=== PATIENT | female | born 2000 | race Caucasian/White ===

== ENCOUNTER 2020-03-17 11:03 | Emergency (ER) | payer BC ==
[~2020-03-17] VITALS: Ht 177.8 cm; Wt 75.7 kg
[2020-03-17 11:05] VITALS: BP 130/78
[2020-03-17] MEDS ORDERED: AMOX1TAB61 PO (11:22)
--- NOTE | 2020-03-17 11:22 | PHYS DOC ---
Past History Past Medical History: No Pertinent History Past Surgical History: Tonsillectomy Smoking: Non-smoker Alcohol Use: Occasionally Drug Use: None General Adult EDM: Chief Complaint: HEADACHE HPI: HPI: Patient is a 20-year-old female who presented to ER today for evaluation of headache and facial pain for about 2 weeks. Patient denies any fever, no cough, no chest pain, no abdominal pain, no sore throat. Patient denies any injury to her head. Patient denies any neck pain or neck stiffness. Review of Systems: Review of Systems: Constitutional: Denies fever or chills Eyes: Denies change in visual acuity HENT: Denies nasal congestion or sore throat Respiratory: Denies cough or shortness of breath Cardiovascular: Denies chest pain or edema GI: Denies abdominal pain, nausea, vomiting, bloody stools or diarrhea : Denies dysuria Musculoskeletal: Denies back pain or joint pain Integument: Denies rash Neurologic: Positive for headache, no focal weakness or sensory changes Endocrine: Denies polyuria or polydipsia Lymphatic: Denies swollen glands Psychiatric: Denies depression or anxiety Heart Score: Risk Factors: Risk Factors: DM, Current or recent (<one month) smoker, HTN, HLP, family history of CAD, obesity. Risk Scores: Score 0 - 3: 2.5% MACE over next 6 weeks - Discharge Home Score 4 - 6: 20.3% MACE over next 6 weeks - Admit for Clinical Observation Score 7 - 10: 72.7% MACE over next 6 weeks - Early Invasive Strategies Allergies: Allergies: Allergies Coded Allergies Type Severity Reaction Last Updated Verified No Known Drug Allergies 03/26/14 No Physical Exam: PE: Constitutional: Well developed, well nourished, no acute distress, non-toxic appearance. [] HENT: Normocephalic, atraumatic, bilateral external ears normal, oropharynx moist, no oral exudates, nose normal. [] Bilateral maxillary sinuses tender to palpation Eyes: PERRLA, EOMI, conjunctiva normal, no discharge. [] Neck: Normal range of motion, no tenderness, supple, no stridor. [] Cardiovascular:Heart rate regular rhythm, no murmur [] Lungs & Thorax: Bilateral breath sounds clear to auscultation [] Abdomen: Bowel sounds normal, soft, no tenderness, no masses, no pulsatile masses. [] Skin: Warm, dry, no erythema, no rash. [] Back: No tenderness, no CVA tenderness. [] Extremities: No tenderness, no cyanosis, no clubbing, ROM intact, no edema. [] Neurologic: Alert and oriented X 3, normal motor function, normal sensory function, no focal deficits noted. [] Psychologic: Affect normal, judgement normal, mood normal. [] Current Patient Data: Vital Signs: Vital Signs Date Time Temp Pulse Resp B/P (MAP) Pulse Ox O2 Delivery O2 Flow Rate FiO2 03/17/20 11:05 98.2 79 16 130/78 (95) 99 Room Air EKG: EKG: [] Radiology/Procedures: Radiology/Procedures: [] Course & Med Decision Making: Course & Med Decision Making Pertinent Labs and Imaging studies reviewed. (See chart for details) [] Dragon Disclaimer: Dragon Disclaimer: This electronic medical record was generated, in whole or in part, using a voice recognition dictation system. Departure Departure: Impression: Primary Impression: Sinusitis Disposition: 01 HOME, SELF-CARE Condition: STABLE Referrals: EMELY AYON MD (PCP) FOLLOW UP WITH YOUR DOCTOR NEXT WEEK Patient Instructions: Sinusitis Scripts Amoxicillin/Potassium Clav (AUGMENTIN 875-125 TABLET) 1 Each Tablet 1 TAB PO BID for SINUSITIS for 10 Days, #20 TAB 0 Refills Prov: ADNY ROMAN DO 03/17/20 DANY ROMAN DO Mar 17, 2020 11:22
== END 2020-03-17 11:23 | disposition home or self-care (01) ==
LOC: ER 11:03
DX: J32.9 Chronic sinusitis, unspecified (principal)
CPT/HCPCS: 99283

== ENCOUNTER 2021-04-09 08:29 | Emergency (ER) | payer BC ==
[~2021-04-09] VITALS: Ht 162.6 cm; Wt 70.3 kg
[~2021-04-09 08:29] MED LIST: AMOX1TAB61 PO
[2021-04-09 08:32] VITALS: BP 132/93
--- NOTE | 2021-04-09 09:10 | RAD ---
EXAMINATION: Chest radiograph. VIEWS: 2 views COMPARISON: None INDICATION: Cough FINDINGS: Normal cardiomediastinal silhouette. No focal consolidation. No pleural effusion or pneumothorax. No acute osseous process. IMPRESSION: No acute cardiopulmonary process. Electronically signed by: Kriss Muse MD (04/09/2021 9:07 AM) [id number]
--- NOTE | 2021-04-09 10:12 | PHYS DOC ---
Past History Past Medical History: No Pertinent History Past Surgical History: Tonsillectomy Smoking: Non-smoker Alcohol Use: None Drug Use: None General Adult EDM: Chief Complaint: SORE THROAT HPI: HPI: Patient is a 21-year-old female who presented to ER due to nasal congestion sore throat, body ache, cough for the last 3 days. Patient went to the [facility] yesterday, had Covid test and came back negative. Patient continued to have sore throat and cough so she came in here for evaluation. Patient denies any abdominal pain, no nausea vomiting, no diarrhea. Review of Systems: Review of Systems: Constitutional: Denies fever or chills Eyes: Denies change in visual acuity HENT: Positive for nasal congestion and sore throat Respiratory: Positive for cough, no shortness of breath Cardiovascular: Denies chest pain or edema GI: Denies abdominal pain, nausea, vomiting, bloody stools or diarrhea : Denies dysuria Musculoskeletal: Denies back pain or joint pain Integument: Denies rash Neurologic: Denies headache, focal weakness or sensory changes Endocrine: Denies polyuria or polydipsia Lymphatic: Denies swollen glands Psychiatric: Denies depression or anxiety Allergies: Allergies: Allergies Coded Allergies Type Severity Reaction Last Updated Verified No Known Drug Allergies 04/09/21 No Physical Exam: PE: Constitutional: Well developed, well nourished, no acute distress, non-toxic appearance. [] HENT: Normocephalic, atraumatic, bilateral external ears normal, oropharynx mois t and mild erythema, no oral exudates, nose with clear drainage. Eyes: PERRLA, EOMI, conjunctiva normal, no discharge. [] Neck: Normal range of motion, no tenderness, supple, no stridor. [] Cardiovascular:Heart rate regular rhythm, no murmur [] Lungs & Thorax: Bilateral breath sounds clear to auscultation [] Abdomen: Bowel sounds normal, soft, no tenderness, no masses, no pulsatile masses. [] Skin: Warm, dry, no erythema, no rash. [] Back: No tenderness, no CVA tenderness. [] Extremities: No tenderness, no cyanosis, no clubbing, ROM intact, no edema. [] Neurologic: Alert and oriented X 3, normal motor function, normal sensory function, no focal deficits noted. [] Psychologic: Affect normal, judgement normal, mood normal. [] Current Patient Data: Labs: Laboratory Tests Test 04/09/21 08:40 Group A Streptococcus Rapid Negative (NEGATIVE) Vital Signs: Vital Signs Date Time Temp Pulse Resp B/P (MAP) Pulse Ox O2 Delivery O2 Flow Rate FiO2 04/09/21 08:32 98.2 86 16 132/93 (106) 99 Room Air EKG: EKG: [] Radiology/Procedures: Radiology/Procedures: [][place] [address] IMAGING REPORT Signed PATIENT: JAYLON QUINN ACCOUNT: [id number] : 2000 LOCATION: ER AGE: 21 SEX: F EXAM STATUS: REG ER ORD. PHYSICIAN: DANY ROMAN DO REASON: COUGH, CONGESTION, SOA FOR 3 DAYS PROCEDURE: CHEST PA & LATERAL EXAMINATION: Chest radiograph. VIEWS: 2 views COMPARISON: None INDICATION: Cough FINDINGS: Normal cardiomediastinal silhouette. No focal consolidation. No pleural effusion or pneumothorax. No acute osseous process. IMPRESSION: No acute cardiopulmonary process. Electronically signed by: Lynne Muse MD (04/09/2021 9:07 AM) [id number] DICTATED AND SIGNED BY: LYNNE MUSE MD DATE: 04/09/21905 CC: EMELY AYON MD; DANY ROMAN DO ~MTH0 0 Heart Score: C/O Chest Pain: N/A Risk Factors: Risk Factors: DM, Current or recent (<one month) smoker, HTN, HLP, family history of CAD, obesity. Risk Scores: Score 0 - 3: 2.5% MACE over next 6 weeks - Discharge Home Score 4 - 6: 20.3% MACE over next 6 weeks - Admit for Clinical Observation Score 7 - 10: 72.7% MACE over next 6 weeks - Early Invasive Strategies Course & Med Decision Making: Course & Med Decision Making Pertinent Labs and Imaging studies reviewed. (See chart for details) [] Dragon Disclaimer: Dragon Disclaimer: This electronic medical record was generated, in whole or in part, using a voice recognition dictation system. Departure Departure: Impression: Primary Impression: Upper respiratory infection Disposition: HOME / SELF CARE / HOMELESS Condition: STABLE Referrals: EMELY AYON MD (PCP) Follow up with your doctor as needed this week Patient Instructions: Upper Respiratory Infection, Adult Additional Instructions: Thank you for visiting our Emergency Department. We appreciate you trusting us with your care. If any additional problems come up don't hesitate to return to visit us. Please follow up with your primary care provider so they can plan additional care if needed and know about the problem that you had. If symptoms worsen come back to the Emergency Department. Any concerning symptoms that start such as chest pain, shortness of air, weakness or numbness on one side of the body, running high fevers or any other concerning symptoms return to the ER. DANY ROMAN DO April 09, 2021 10:12
== END 2021-04-09 10:36 | disposition home or self-care (01) ==
LOC: ER 08:29
DX: J06.9 Acute upper respiratory infection, unspecified (principal)
CPT/HCPCS: 71046; 87070; 87880; 99284

== ENCOUNTER 2021-12-17 09:13 | Emergency (ER) | payer BC ==
[~2021-12-17] VITALS: Ht 162.6 cm; Wt 64.1 kg
[2021-12-17] MEDS ORDERED: ONDANSETRON ODT 4 MG TAB.RAPDIS PO ONE (10:45)
--- NOTE | 2021-12-17 10:56 | PHYS DOC ---
Past History Past Medical History: No Pertinent History (ELIEZER MARTÍNEZ) Past Surgical History: Tonsillectomy (ELIEZER MARTÍNEZ) Smoking: Non-smoker, Second-hand Alcohol Use: None Drug Use: None (ELIEZER MARTÍNEZ) General Adult EDM: Chief Complaint: COUGH HPI: HPI: Patient is a 21 year old female who presents with 7-day history of congestion, cough, shortness of breath, fatigue and nausea. Patient reports her boyfriend at home tested COVID positive. When she tested before her symptoms began, she states that her test was negative. Patient denies fever, body aches, vomiting, diarrhea. She was not vaccinated against COVID-19 and has not received a flu shot this season (ELIEZER MARTÍNEZ) Review of Systems: Review of Systems: Constitutional: See HPI Eyes: Denies change in visual acuity, visual field deficits or discharge HENT: See HPI Respiratory: Denies cough or shortness of breath Cardiovascular: Denies chest pain, palpitations or edema GI: See HPI : Denies dysuria or hematuria Musculoskeletal: Denies back pain or joint pain Integument: Denies rash or other skin lesion Neurologic: Denies headache, focal weakness or sensory changes (ELIEZER MARTÍNEZ) Current Medications: Current Meds: Current Medications Medications (Trade) Dose Ordered Sig/Abdoul Start Time Stop Time Status Last Admin Dose Admin Ondansetron HCl (Zofran Odt) 4 mg 1X ONCE 12/17/21 10:45 12/17/21 10:47 DC 12/17/21 10:50 4 MG (ELIEZER MARTÍNEZ) Allergies: Allergies: Allergies Coded Allergies Type Severity Reaction Last Updated Verified No Known Drug Allergies 04/09/21 No (ELIEZER MARTÍNEZ) Physical Exam: PE: Constitutional: Well developed, well nourished, no acute distress, non-toxic appearance. HENT: Normocephalic, atraumatic, bilateral external ears normal, oropharynx moist, no oral exudates, nose normal. Eyes: EOMI, conjunctiva normal, no discharge. Neck: Normal range of motion, no stridor. Cardiovascular: Heart rate regular rhythm, no murmur. Lungs & Thorax: Bilateral breath sounds mild expiratory wheezing. Skin: Warm, dry, no erythema, no rash. Extremities: No tenderness, no cyanosis, no clubbing, ROM intact, no edema. Neurologic: Alert and oriented x4, steady and symmetrical gait, no focal deficits noted. (ELIEZER MARTÍNEZ) Current Patient Data: Labs: Laboratory Tests Test 12/17/21 10:32 Influenza Type A (Rapid) Negative (NEGATIVE) Influenza Type B (Rapid) Negative (NEGATIVE) Vital Signs: Vital Signs Date Time Temp Pulse Resp B/P (MAP) Pulse Ox O2 Delivery O2 Flow Rate FiO2 12/17/21 09:50 98.1 83 20 127/65 (85) 100 Room Air (ELIEZER MARTÍNEZ) Heart Score: C/O Chest Pain: No (ELIEZER MARTÍNEZ) Course & Med Decision Making: Course & Med Decision Making Pertinent Labs and Imaging studies reviewed. (See chart for details) Patient is an otherwise healthy 21-year-old female who presents with multiple symptoms concerning for viral syndrome, COVID-19 cannot be ruled out. With patient having resided with someone who tested COVID positive and now having symptoms, she has clinical diagnosis of COVID-19. Flu swab will be obtained as well. Patient treated with Zofran for nausea. Patient was given return precautions, isolation instruction, a note for work. All of her questions were answered. She understands and is agreeable to discharge plan. (ELIEZER MARTÍNEZ) Course & Med Decision Making I was the Attending physician on the above date of service of this patient. This patient was evaluated, examined, treated, and dispositioned from the emergency department by the mid-level practitioner. Although I was working at the time , no assistance was requested. Electronically signed, Wanda Pérez DO (WANDA PÉREZ DO) Hector Disclaimer: Hector Disclaimer: This electronic medical record was generated, in whole or in part, using a voice recognition dictation system. (ELIEZER MARTÍNEZ) Departure Departure: Impression: Primary Impression: COVID-19 determined by clinical diagnostic criteria Disposition: HOME / SELF CARE / HOMELESS Condition: STABLE Referrals: EMELY AYON MD (PCP) Patient Instructions: Viral Syndrome Additional Instructions: Follow the following supportive treatment measures: - Cool mist humidifier with plain water at bedside while you sleep - Mucinex (guaifenesin) per box instructions - Tessalon perles (benzonatate) for cough, especially at night before bed - Zofran (ondansetron) for nausea/vomiting - Alternate ibuprofen and acetaminophen every four hours for body aches/fever/headache Your isolation period will end on 12/21/21. Beginning 12/22/21, you may return to work. You have been tested for or diagnosed with COVID-19 infection. It is an infection caused by a new type of coronavirus. COVID-19 will cause cold-like or mild flu symptoms in most. It can cause more severe symptoms like problems breathing in some. There is no treatment for COVID-19. The body will clear the infection over time. Self-care will help to ease discomfort. Steps to Take: - Rest as needed. - Choose healthy foods including fruits and vegetables. Drink water throughout the day. - Get plenty of sleep each night. - If you smoke, try to quit. It may ease breathing. - Avoid alcohol. - Keep Others Healthy - The virus can spread to others. Droplets are released every time you sneeze or cough. The droplets can get into the mouth, nose, or eyes of people near you and lead to infection. To lower the chances of spreading COVID-19 to others: Stay at home until your doctor has said it is safe to leave. If you tested positive this will mean staying isolated until both of the following are true: - At least 10 days have passed since the start of illness. - You are free of fever for at least 72 hours without the use of medicine. During this time: - Avoid public areas, events, or transportation. Do not return to work or school until your doctor has said it is safe to do so. - Call ahead if you need to go to a medical center. Let them know you may have COVID-19. It will help them guide you where to go. They may also ask you to wear a facemask when you come to the office. - If you call for emergency medical services, let them know you may have COVID- 19. While at home: - Try to avoid close contact with others. Stay about 6 feet away. - If possible, spend most of your time in a separate room from others. - Use a face mask if you will be in close contact with others such as sharing a room or vehicle. - Have someone wipe down common surfaces in the home. Use household transmission supervisor every day on areas like doorknobs, counters, or sinks. - Cough or sneeze into a tissue. Throw the tissue away right after use. If a tissue is not available, cough or sneeze into your elbow. - Wash your hands often. Wash them after sneezing or coughing. Use soap and water and wash or at least 20 seconds. Alcohol based hand cell cleaner can be used if soap and water is not available. - Do not prepare food for others. Avoid sharing personal items like forks, spoons, or toothbrushes. - Avoid close contact with pets while you are sick. There is no evidence of the virus passing to pets. This is a safety step until more is known about this virus. - Isolation can be frustrating. Social interaction can help. Keep in touch with friends and family through phone and tech options. You can still interact with others in your home, just keep a safe distance of about 6 feet. Follow-up: - Your doctors office will check in with you to see if there are any changes in your health. - You may be asked to keep track of symptoms to share with them. They will also let you know when you are clear to be in public again. Contact your doctor if your recovery is not going as you expect. Get emergency care if you have problems such as: - Trouble breathing with oxygen saturation <90% - Nonstop chest pain or pressure - Changes in awareness, confusion, or problems waking - Lips or face have bluish color - Worsening of symptoms If you think you have an emergency, call for emergency medical services right away. As taken from [facility] Scripts Benzonatate (BENZONATATE) 100 Mg Capsule 1-2 CAP PO HS for cough, #20 CAP Prov: ELIEZER MARTÍNEZ 12/17/21 Ondansetron (ONDANSETRON ODT) 4 Mg Tab.rapdis 1 TAB PO PRN Q6-8HRS for N/V, #20 TAB Prov: ELIEZER MARTÍNEZ 12/17/21 ELIEZER MARTÍNEZ Dec 17, 2021 10:56 WANDA PÉREZ DO Dec 18, 2021 08:04
[2021-12-17 11:25] LABS: INFLUENZA A PATIENT NEGATIVE (NEGATIVE); INFLUENZA B PATIENT NEGATIVE (NEGATIVE)
[2021-12-17] MEDS ORDERED: ONDA4TAB12 PO (11:42)
[2021-12-17] MEDS ORDERED: BENZ-8 PO (11:42)
[2021-12-17 11:45] VITALS: BP 122/61
== END 2021-12-17 12:13 | disposition home or self-care (01) ==
LOC: ER 09:13
DX: U07.1 COVID-19 (principal); Z77.22 Contact with and (suspected) exposure to environmental tobacco smoke (acute) (chronic)
CPT/HCPCS: 87428; 99283; Q0162

== ENCOUNTER 2022-02-04 12:09 | Emergency (ER) | payer BC ==
[~2022-02-04] VITALS: Ht 162.6 cm; Wt 63.0 kg
[~2022-02-04 12:09] MED LIST changes: +BENZ-8 PO; +ONDA4TAB12 PO
[2022-02-04 12:22] VITALS: BP 118/78
--- NOTE | 2022-02-04 12:36 | PHYS DOC ---
Past History Past Medical History: No Pertinent History Past Surgical History: Tonsillectomy Smoking: Non-smoker, Second-hand Alcohol Use: None Drug Use: None General Adult EDM: Chief Complaint: HEADACHE HPI: HPI: Patient is a 22-year-old female who presents to the emergency department for headache that started on Wednesday. Patient reports that she has a history of migraine headaches that have been intermittent over the last 2 years. She took Advil and Zofran at home. She reports that her headache has actually improved but she continues to have nausea and vomiting. She rates her head pain 7 out of 10. Her primary care provider is Dr. Ayon. She is also reporting nausea, vomiting, photophobia, phonophobia. She denies any thunderclap headache, neck stiffness, fevers. She reports that this is not the worst headache she is ever had. Review of Systems: Review of Systems: Constitutional: See HPI HENT: See HPI GI: See HPI Musculoskeletal: See HPI Neurologic: See HPI Allergies: Allergies: Allergies Coded Allergies Type Severity Reaction Last Updated Verified No Known Drug Allergies 04/09/21 No Physical Exam: PE: Constitutional: Well developed, well nourished, no acute distress, non-toxic a ppearance. [] HENT: Normocephalic, atraumatic, bilateral external ears normal, oropharynx moist, no oral exudates, nose normal. [] Eyes: PERRL, 4 mm bilaterally, no nystagmus, EOMI, conjunctiva normal, no discharge. [] Neck: Normal range of motion, no tenderness, no neutral rigidity, supple, no stridor. [] Cardiovascular:Heart rate regular rhythm, no murmur [] Lungs & Thorax: Bilateral breath sounds clear to auscultation [] Abdomen: Bowel sounds normal, soft, no tenderness, no masses, no pulsatile masses. [] Skin: Warm, dry, no erythema, no rash. [] Back: Normal range of motion Extremities: No tenderness, no cyanosis, no clubbing, ROM intact, no edema. [] Neurologic: Alert and oriented X 3, normal motor function, normal sensory function, no focal deficits noted. [] Psychologic: Affect normal, judgement normal, mood normal. [] EKG: EKG: [] Radiology/Procedures: Radiology/Procedures: [] Heart Score: C/O Chest Pain: N/A Risk Factors: Risk Factors: DM, Current or recent (<one month) smoker, HTN, HLP, family history of CAD, obesity. Risk Scores: Score 0 - 3: 2.5% MACE over next 6 weeks - Discharge Home Score 4 - 6: 20.3% MACE over next 6 weeks - Admit for Clinical Observation Score 7 - 10: 72.7% MACE over next 6 weeks - Early Invasive Strategies Course & Med Decision Making: Course & Med Decision Making Pertinent Labs and Imaging studies reviewed. (See chart for details) [] Patient presents to the emergency department for headache with nausea, vomiting, phonophobia and photophobia. Patient has a history of migraine headaches. She reports this feels like her typical migraine headaches. She denies thunderclap headache. She reports that this is not the worst headache she is ever had in her life. Patient reports that her headache is actually improved since starting on Wednesday but she continues to have nausea and vomiting which is her biggest complaint. Urinalysis and test performed in the emergency department. The test was negative. Patient treated with migraine cocktail. Following treatment in the emergency department patient reports improvement in her nausea and headache. Patient will be discharged home with nausea medication. Patient's vital signs are stable. I discussed with patient all findings and diagnostic testing as well as the need to follow-up with PCP for further evaluation and treatment or return to the ER if any new or worsening symptoms. Strict return precautions were also discussed at length. Patient voiced understanding and agreement with the plan. Patient is hemodynamically stable at the time of disposition. Dragon Disclaimer: Hector Disclaimer: This electronic medical record was generated, in whole or in part, using a voice recognition dictation system. Departure Departure: Impression: Primary Impression: Migraine Qualified Codes: G43.909 - Migraine, unspecified, not intractable, without status migrainosus Disposition: 01 HOME / SELF CARE / HOMELESS Condition: GOOD Referrals: EMELY AYON MD (PCP) Patient Instructions: Migraine Headache Additional Instructions: You are seen in the emergency department today for migraine headache which is treated with a migraine cocktail. You reported improvement in your symptoms following pain cocktail. You are being discharged home with nausea medication that you can take as needed. At home you can take Tylenol and ibuprofen. Increase your fluids and rest. Follow-up with your primary care provider merari askew regarding your ER visit. Return to the emergency department if you develop worsening of your headache, confusion, vision changes, intractable nausea or vomiting, high fevers refractory to treatment or any new or worsening concerns. Scripts Ondansetron (ONDANSETRON ODT) 4 Mg Tab.rapdis 1 TAB PO PRN Q6-8HRS for nausea for 7 Days, #28 TAB 0 Refills Prov: PARMINDER JENNINGS APRN 02/04/22 PARMINDER JENNINGS APRN Feb 04, 2022 12:36
[2022-02-04] MEDS ORDERED: KETOROLAC 15 MG/ML VIAL. IVP ONE (13:00)
[2022-02-04] MEDS ORDERED: IV NORMAL SALINE 1,000ML 1,000 ML IV ONE (13:00)
[2022-02-04] MEDS ORDERED: diphenhydrAMINE 50 MG/ML VIAL IVP ONE (13:00)
[2022-02-04] MEDS ORDERED: PROCHLORPERAZINE 10 MG/2 ML VIAL. IV ONE (13:00)
[2022-02-04] MEDS ORDERED: ONDA4TAB12 PO (13:46)
[2022-02-04 14:03] LABS: BACTERIA,URINE 0 /HPF (0-FEW); CLARITY,URINE CLEAR; COLOR,URINE YELLOW; GLUCOSE,URINE NEG (NEG); NITRITE,URINE NEG (NEG); SQUAMOUS EPITHELIAL CELL,UR MOD /LPF; UROBILINOGEN,URINE 0.2 mg/dL (0.2 mg/dL)
== END 2022-02-04 14:45 | disposition home or self-care (01) ==
LOC: ER 12:09
DX: G43.909 Migraine, unspecified, not intractable, without status migrainosus (principal); Z77.22 Contact with and (suspected) exposure to environmental tobacco smoke (acute) (chronic)
CPT/HCPCS: 81001; 81025; 96361; 96374; 96375; 99284; J0780; J1200; J1885; J7030